=== PATIENT | male | born 2000 | race Caucasian/White ===

== ENCOUNTER 2024-04-01 06:24 | Observation (INO) | payer OTHER ==
[2024-04-01 06:31] VITALS: BMI 22.2
[2024-04-01] MEDS ORDERED: IBUPROFEN 800 MG/8 ML IJ IVPB ONE (07:58)
[2024-04-01] MEDS: IBUPROFEN 800 MG/8 ML IJ IVPB ONE (08:19)
[2024-04-01 08:52] LABS: POTASSIUM 3.7 mmol/L (3.5-5.1)
[2024-04-01 08:53] LABS: BASO % 0.3 % (0-2.0); HEMATOCRIT 46.8 % (35.4-49); HEMOGLOBIN 15.7 GM/dL (11.7-16.9); LYMPH % 13.9 % (8-40); MCH 30.1 pg (25.7-33.7); MCHC 33.5 g/dl (32.0-35.9); MEAN CELL VOLUME 89.8 fl (80-96); MEAN PLT VOLUME 8.5 fl (7.5-11.1); MONO % 7.2 % (3.8-10.2); NEUT % 78.6 % (42.8-82.8); PLATELET COUNT 232 10^3/uL (134-434); RBC 5.21 M/mm3 (4.00-5.60); RDW 12.9 % (11.9-15.9)
[2024-04-01 08:54] LABS: ALBUMIN 3.5 g/dl (3.4-5.0)
[2024-04-01 08:55] LABS: BLOOD UREA NITROGEN 25.4 mg/dL (7-18)
[2024-04-01 08:57] LABS: CREATININE 1.2 mg/dL (0.55-1.3)
[2024-04-01 08:59] LABS: BILIRUBIN,TOTAL 0.3 mg/dL (0.2-1); TOT PROT 6.3 g/dl (6.4-8.2)
[2024-04-01 09:00] LABS: THROAT:GRP A STREP NOT DETECTED (NOTDETECTED)
[2024-04-01] MEDS: SODIUM CHLORIDE 1,000 ML IV STA (10:08)
[2024-04-01] MEDS ORDERED: PIPERACILLIN/TAZOB 4.5 GM 4.5 GM/100 ML BAG IVPB ONE (10:29)
[2024-04-01] MEDS ORDERED: VANCOMYCIN 1 GRAM (PRE-DOCKED) 1,000 MG/250 ML BAG IVPB ONE (10:29)
[2024-04-01] MEDS: PIPERACILLIN/TAZOB 4.5 GM 4.5 GM in DEXTROSE 5%-WATER 100 ML IVPB ONE (11:16)
[2024-04-01] MEDS: VANCOMYCIN 1,000 MG in DEXTROSE 5%-WATER - 250 ML IVPB ONE (12:00)
[2024-04-01] MEDS ORDERED: IBUPROFEN 400 MG TABLET (FP) PO ONE (18:58)
[2024-04-01] MEDS: diphenhydrAMINE HCL 25 MG CAPSULE (FP) PO PRN (21:37)
[2024-04-01] MEDS: ACETAMINOPHEN 500 MG TABLET (FP) PO PRN (21:37)
[2024-04-01] MEDS: PANTOPRAZOLE 20 MG TABLET PO SCH (21:37)
[2024-04-02 09:39] LABS: EOS % 0.1 % (0-4.5); HEMATOCRIT 43.8 % (35.4-49); HEMOGLOBIN 14.8 GM/dL (11.7-16.9); LYMPH % 21.9 % (8-40); MCH 30.4 pg (25.7-33.7); MCHC 33.8 g/dl (32.0-35.9); MEAN CELL VOLUME 89.8 fl (80-96); MEAN PLT VOLUME 8.6 fl (7.5-11.1); MONO % 4.5 % (3.8-10.2); NEUT % 73.5 % (42.8-82.8); PLATELET COUNT 245 10^3/uL (134-434); RBC 4.88 M/mm3 (4.00-5.60); WHITE BLOOD COUNT 13.4 K/mm3 (4.0-10.0)
[2024-04-02 10:08] LABS: POTASSIUM 3.6 mmol/L (3.5-5.1)
[2024-04-02 10:12] LABS: CALCIUM 8.7 mg/dL (8.5-10.1)
[2024-04-02 10:16] LABS: CREATININE 0.9 mg/dL (0.55-1.3)
[2024-04-02] MEDS: LORATADINE 10 MG TABLET PO SCH (12:38)
[2024-04-02] MEDS: methylPREDNISolone NA SUCC 40 MG/1 ML VIAL IVPUSH ONE (14:11)
[2024-04-02 14:59] LABS: HIV INTERPRETATION NEGATIVE (NEGATIVE)
[2024-04-02] MEDS: IBUPROFEN 400 MG TABLET (FP) PO PRN (21:01)
[2024-04-02] MEDS ORDERED: methylPREDNISolone NA SUCC 40 MG/1 ML VIAL IVPUSH SCH (22:00)
[2024-04-03] MEDS: diphenhydrAMINE HCL 25 MG CAPSULE (FP) PO ONE (01:29)
[2024-04-03 09:07] LABS: BASO % 0.1 % (0-2.0); HEMATOCRIT 39.3 % (35.4-49); HEMOGLOBIN 13.3 GM/dL (11.7-16.9); LYMPH % 11.4 % (8-40); MCH 30.1 pg (25.7-33.7); MCHC 33.9 g/dl (32.0-35.9); MEAN CELL VOLUME 88.9 fl (80-96); MEAN PLT VOLUME 8.3 fl (7.5-11.1); MONO % 3.4 % (3.8-10.2); NEUT % 85.1 % (42.8-82.8); PLATELET COUNT 235 10^3/uL (134-434); RBC 4.43 M/mm3 (4.00-5.60); RDW 12.9 % (11.9-15.9); WHITE BLOOD COUNT 14.1 K/mm3 (4.0-10.0)
[2024-04-03 09:24] LABS: POTASSIUM 3.6 mmol/L (3.5-5.1)
[2024-04-03 09:25] LABS: ALBUMIN 3.1 g/dl (3.4-5.0); BLOOD UREA NITROGEN 11.8 mg/dL (7-18); CALCIUM 9.1 mg/dL (8.5-10.1); MAGNESIUM 2.3 mg/dL (1.8-2.4)
[2024-04-03 09:29] LABS: CREATININE 0.7 mg/dL (0.55-1.3); PHOSPHOROUS 2.9 mg/dL (2.5-4.9)
[2024-04-03 09:30] LABS: BILIRUBIN,TOTAL 0.5 mg/dL (0.2-1)
[2024-04-03 13:44] VITALS: BP 109/61; PULSE 109; RESP 20; TEMP 98.8
== END 2024-04-03 02:55 | disposition home or self-care (01) ==
LOC: JER 06:24 → JERBED 12:29 → UNDOADMOB 12:32 → INTOOBSV 12:32 → J5S 20:23 → JERBED 20:23
PROVIDERS: ADMIT Internal Medicine; ATTEND Internal Medicine
PROC: 3E03329 Introduction of Other Anti-infective into Peripheral Vein, Percutaneous Approach (ICD-10-PCS; principal; 2024-04-01)
PROC: 3E033NZ Introduction of Analgesics, Hypnotics, Sedatives into Peripheral Vein, Percutaneous Approach (ICD-10-PCS; 2024-04-01)
PROC: 3E033GC Introduction of Other Therapeutic Substance into Peripheral Vein, Percutaneous Approach (ICD-10-PCS; 2024-04-01)
PROC: 3E0337Z Introduction of Electrolytic and Water Balance Substance into Peripheral Vein, Percutaneous Approach (ICD-10-PCS; 2024-04-01)
DX: R50.9 Fever, unspecified (principal); R65.10 Systemic inflammatory response syndrome (SIRS) of non-infectious origin without acute organ dysfunction; R21 Rash and other nonspecific skin eruption; M25.50 Pain in unspecified joint; D72.829 Elevated white blood cell count, unspecified; R00.0 Tachycardia, unspecified; R12 Heartburn; K27.9 Peptic ulcer, site unspecified, unspecified as acute or chronic, without hemorrhage or perforation
CPT/HCPCS: 0241U-QW; 36415; 71045-TC-FY; 80048; 80053; 83605; 83735; 84100; 85025; 85651; 86140; 86308; 86780; 87040; 87389; 87651; 93005; 93010; 96361; 96374; 96375; 99285-25; G0378